=== PATIENT | female | born 1955 | race Caucasian/White ===

== ENCOUNTER 2019-12-07 13:46 | Outpatient (CLI) | payer BC, SELFPAY ==
[2019-12-07 14:22] LABS: Alanine Aminotransferase 36 U/L (4-35); Albumin Level 4.6 g/dL (3.5-5.1); Alkaline Phosphatase 90 U/L (38-126); Aspartate Amino Transferase 44 U/L (14-36); Bilirubin,Total 0.2 mg/dL (0.2-1.3); Blood Urea Nitrogen 11 mg/dL (7-17); Calcium 8.9 mg/dL (8.4-10.2); Carbon Dioxide 31 mmol/L (22-30); Chloride 102 mmol/L (98-107); Estimated Glomerular Filt Rate > 60; Glucose 94 mg/dL (65-105); Potassium 4.5 mmol/L (3.4-5.0); Sodium 138 mmol/L (137-145)
== END 2019-12-07 13:47 | disposition home or self-care (01) ==
PROVIDERS: PCP Family Medicine; Visit Provider Internal Medicine Cardiovascular Disease
DX: E66.3 Overweight (principal)
CPT/HCPCS: 36415; 80053

== ENCOUNTER 2019-12-13 13:16 | Outpatient (CLI) | payer BC, SELFPAY ==
--- NOTE | ~2019-12-13 | MMUS_ITS ---
EXAMINATION: MM diagnostic doreen LT w jeromy, US breast LT limited HISTORY: Follow-up left breast masses TECHNIQUE: Additional 3-D tomosynthesis images of the left breast were performed and synthetic 2-D im ages were generated. CAD analysis was submitted and interpreted. High resolution left breast ultrasou nd was performed. COMPARISON: Comparison to multiple prior studies sequentially, with oldest reviewed study dated 09/2014. FINDINGS: MAMMOGRAPHIC FINDINGS: The breasts are heterogenously dense, which may obscure small masses. No new masses, calcifications o r architectural distortion are identified to suggest malignancy. ULTRASOUND: Left breast ultrasound: There are multiple cysts of the left breast. In addition, at 4:00, 3 cm from the nipple there is a ci rcumscribed hypoechoic 4 mm mass with parallel orientation, no significant internal vascularity or po sterior features. This mass is unchanged. IMPRESSION: 1. Stable likely benign left breast mass at 4:00, 3 cm from the nipple. Additional benign findings ar e noted. 2. Recommend six-month interval bilateral mammogram and left breast ultrasound. BI-RADS category 3, probably benign findings. Reviewed, dictated and finalized at location A. IMPRESSION: 1. Stable likely benign left breast mass at 4:00, 3 cm from the nipple. Additio nal benign findings are noted. 2. Recommend six-month interval bilateral mammogram and left breast ultrasound. BI-RADS category 3, probably benign findings.
== END 2019-12-13 13:17 | disposition home or self-care (01) ==
LOC: ANHIMG 13:18
PROVIDERS: PCP Family Medicine; Visit Provider Family Medicine
DX: R92.8 Other abnormal and inconclusive findings on diagnostic imaging of breast (principal)
CPT/HCPCS: 76642; 77061; 77065; G0279

== ENCOUNTER 2019-12-19 13:02 | Emergency (ER) | payer OTHER, BC, SELFPAY ==
--- NOTE | ~2019-12-19 | XR_ITS ---
EXAMINATION: XR foot RT min 3V DATE: 12/19/2019 13:22 INDICATION: Right foot injury and pain. TECHNIQUE: 4 views of right foot were obtained. COMPARISON: None. FINDINGS: Bone alignment is normal. No fracture. Joint spaces are well maintained. There are enthesop hytes at the posterior and plantar aspects of calcaneal tuberosity. IMPRESSION: 1. No fracture. Reviewed, dictated and finalized at location A. IMPRESSION: 1. No fracture.
--- NOTE | 2019-12-19 13:04 | ED.LOWEXIN ---
HPI - Extremity Injury (Lower) General Chief Complaint: Extremity Injury, Lower Stated Complaint: fall/injured r foot/toes Time Seen by Provider: 12/19/19 13:24 Source: patient and RN notes reviewed Mode of arrival: ambulatory Limitations: no limitations History of Present Illness HPI Narrative: 64-year-old female presents with concern for right foot and toe injury. Reports 2 days ago she tripped over a cord, injuring her right foot. Reports pain to the second digit and the dorsal aspect of the foot beneath the second and third digits. Reports using ice, postop shoe, elevation. Reports pain has not been severe so she has not taken any pain medicine. MD complaint: foot injury Related Data Home Medications Medication Instructions Recorded Confirmed cholecalciferol (vitamin D3) 25 1,000 unit PO DAILY 05/08/19 12/07/19 mcg (1,000 unit) capsule ascorbate calcium (vitamin C) 500 500 mg PO DAILY 12/07/19 12/07/19 mg tablet mecobalamin (vitamin B12) 1,000 1,000 mcg PO DAILY 12/07/19 12/07/19 mcg chewable tablet Allergies Allergy/AdvReac Type Severity Reaction Status Date / Time No Known Allergies Allergy Unverified 12/19/19 13:10 Review of Systems Review of Systems: Narrative: CONSTITUTIONAL: Denies malaise, chills, sweats, or fever. SKIN: Reports right dorsal foot, digit oozing and swelling MUSCULOSKELETAL: Reports right dorsal foot pain, digit pain NEUROLOGIC: Denies numbness, weakness. All systems reviewed & are unremarkable except as noted in HPI and below PMFSH Past Medical History Medical History (Updated 12/19/19 @ 13:33 by Caitlin Brower NP) Endometriosis History of GI bleed Meralgia paresthetica, left lower limb Meralgia paresthetica, right lower limb Palpitations with regular cardiac rhythm Phototoxic dermatitis Surgical History Surgical History (Updated 05/17/19 @ 14:55 by Thaddeus Taylor) History of hysterectomy Social History Social History Smoking status: Never smoker Alcohol intake: current Gender identity (if verbalized by the patient): Female Comments At time of signature, agree with nursing past medical, surgical, social and family history. There is no relevant family history pertinent to the presenting complaint Exam Narrative: Exam Narrative: GENERAL: Well-appearing, well-nourished, and in no acute distress. HEAD: Normocephalic, atraumatic. EYES: PERRLA, conjunctivae clear NECK: Supple. CHEST: Speaks in full sentences. No respiratory distress. HEART: Regular rate and rhythm. Normal and equal peripheral pulses. EXTREMITIES: Right foot, digits have normal strength and sensation, normal range of motion. 5/5 strength with digit flexion and extension. Normal sensation with sensitivity to light touch and pain. Dorsal edema, ecchymosis, edema and ecchymosis noted to digits 2, 3, 4. No open wounds, no skin tenting, no devitalized tissue or atrophy, no trophic changes, no obvious deformity, alignment normal, dorsal tenderness, tenderness to the second digit, nearby joints and structures intact. Distal pulses palpable and equal bilaterally, skin warm, dry, pink. Capillary refill less than 3 seconds. SKIN: Warm, dry, no rash. NEURO: Alert and oriented x3. PSYCH: Normal mood and affect Course Course Emergency Course: Patient is aware of diagnosis, understands and agrees to treatment plan. Anticipatory guidance given. Patient agrees to follow-up as directed and is aware of reasons to seek care at the emergency department. Portions of this record may have been created with voice recognition software Vital Signs Vital signs: Reviewed. MDM - Extremity Injury (Lower) MDM Narrative Medical decision making narrative: Patients injury and pain is consistent with musculoskeletal etiology. No signs of neurological or vascular compromise on exam. Compartments and tissues are soft without signs of compartment syndrome. Pain is felt appro
[2019-12-19 13:11] VITALS: BP 131/76; PULSE 73; RESP 16; TEMP 36.6; O2SAT 98
== END 2019-12-19 13:45 | disposition home or self-care (01) ==
PROVIDERS: Emergency Provider Nurse Practitioner; PCP Family Medicine
DX: S93.601A Unspecified sprain of right foot, initial encounter (principal); W18.09XA Striking against other object with subsequent fall, initial encounter; N80.9 Endometriosis, unspecified; G57.13 Meralgia paresthetica, bilateral lower limbs
CPT/HCPCS: 73630; 99213; G0463

== ENCOUNTER 2019-12-22 07:38 | Outpatient (CLI) | payer BC, SELFPAY ==
[2019-12-22 08:50] LABS: Cholesterol 189 mg/dL (0-200); HDL Direct 48 mg/dL; Triglycerides 58 mg/dL (<150)
[2019-12-22 09:00] LABS: LDL Cholesterol Direct 111 mg/dL
== END 2019-12-22 07:39 | disposition home or self-care (01) ==
LOC: ANHLAB 07:40
PROVIDERS: PCP Family Medicine; Visit Provider Internal Medicine Cardiovascular Disease
DX: E66.3 Overweight (principal); R00.2 Palpitations
CPT/HCPCS: 36415; 80061

== ENCOUNTER 2020-07-11 13:38 | Outpatient (CLI) | payer BC, SELFPAY ==
--- NOTE | ~2020-07-11 | XR_ITS ---
XR ribs LT 2V w CXR 2V DATE: 07/11/2020 13:59 INDICATION: Costochondral pain, costochondral junction syndrome (Tietze syndrome) TECHNIQUE: PA and lateral chest. 4 views of the left ribs. COMPARISON: 05/06/2016 2 view chest FINDINGS: Diffuse osteopenia. Diffuse idiopathic skeletal hyperostosis of the thoracic spine. There is mild to moderate osteoarthritis at the left glenohumeral joint. No left rib fracture or bone destruction is detected. No pulmonary infiltrate or consolidation, pleural effusion or pulmonary vascular congestion or pneumo thorax. Heart size is within normal range. No hilar or mediastinal enlargement. IMPRESSION: No active cardiopulmonary disease No left rib fracture or bone destruction is evident Diffuse idiopathic skeletal hyperostosis of the thoracic spine Reviewed, dictated and finalized at location A. IGN CLERK
== END 2020-07-11 13:39 | disposition home or self-care (01) ==
LOC: ANHIMG 13:41
PROVIDERS: PCP Family Medicine; Visit Provider Family Medicine
DX: M94.0 Chondrocostal junction syndrome [Tietze] (principal); M85.88 Other specified disorders of bone density and structure, other site
CPT/HCPCS: 71046; 71100

== ENCOUNTER 2020-07-24 09:39 | Outpatient (CLI) | payer BC, SELFPAY ==
--- NOTE | ~2020-07-24 | DEXA_ITS ---
Bone Density Report Name: Orly Perez Age: 64 Sex: Female Ethnicity: White Date of : 1955 Indication: postmenopausal; hysterectomy; Referring Provider: KARRI GREGG Study: Bone densitometry was performed. Exam Date: July 24, 2020 Accession number: [id number] Bone Density: Region BMD T-score Z-score Classification AP Spine (L1-L4) 1.004 -0.4 1.3 Normal Femoral Neck (Left) 0.710 -1.3 0.2 Osteopenia Total Hip (Left) 0.790 -1.2 -0.1 Osteopenia Total Hip Bilateral Avg 0.770 -1.4 -0.3 Osteopenia Femoral Neck (Right) 0.617 -2.1 -0.6 Osteopenia Total Hip (Right) 0.749 -1.6 -0.4 Osteopenia World Health Organization criteria for BMD impression classify patients as: Normal (T-score at or above -1.0), Osteopenia (T-score between -1.0 and -2.5), or Osteoporosis (T-score at or below -2.5). 10-year Fracture Risk(1): Major Osteoporotic Fracture 11% Hip Fracture 1.6% Reported Risk Factors: [place] (), Neck BMD=0.617, BMI=25.0 (1) FRAX(R) Version 3.08. Fracture probability calculated for an untreated patient. Fracture probability may be lower if the patient has received treatment. Previous Exams: Region Exam Age BMD T-score BMD Change BMD Change Date g/cm2 vs Baseline vs Previous AP Spine(L1-L4) 07/24/2020 64 1.004 -0.4 -0.131(-11.6%) -0.107(-9.6%)# 03/08/2012 56 1.111 0.6 -0.024(-2.1%)# -0.024(-2.1%)# 04/03/2010 54 1.135 0.8 Total Hip(Left) 07/24/2020 64 0.790 -1.2 -0.094(-10.6%) -0.101(-11.4%) 03/08/2012 56 0.892 -0.4 0.007(0.8%)# 0.007(0.8%)# 04/03/2010 54 0.885 -0.5 Total Hip(Right) 07/24/2020 64 0.749 -1.6 -0.132(-14.9%) -0.129(-14.7%) 03/08/2012 56 0.879 -0.5 -0.002(-0.3%)# -0.002(-0.3%)# 04/03/2010 54 0.881 -0.5 *Denotes significance at 95% confidence level, LSC for AP Spine = 0.022 g/cm2, LSC for Total Hip = 0.027 g/cm2 Clinical Information Provided by Patient: Has used the following medications: Vitamin D, Calcium Has the following medical conditions: Hysterectomy Patient maximum height was 67 Menopause Age: 56 Does not regularly consume dairy products Drinks caffeinated beverages Onset of menses at age 14 Number of children 3 Impression: The patient has low bone mass, based on the Right Femoral Neck T-score. The patient has an estimated ten-year risk of hip fracture of 1.6% and an estimated ten-year risk of major fracture of 11%, based on the WHO FRAX algor
== END 2020-07-24 09:40 | disposition home or self-care (01) ==
LOC: ANHIMG 09:45
PROVIDERS: PCP Family Medicine; Visit Provider Family Medicine
DX: Z78.0 Asymptomatic menopausal state (principal); M85.80 Other specified disorders of bone density and structure, unspecified site; M85.852 Other specified disorders of bone density and structure, left thigh; M85.851 Other specified disorders of bone density and structure, right thigh
CPT/HCPCS: 77080